=== PATIENT | male | born 1975 ===

== ENCOUNTER → 2017-05-27 | Outpatient (RCR) | payer MEDICARE | END | disposition home or self-care (01) | LOC: PTY 16:00 | DX: M54.5 Low back pain (principal); G51.0 Bell's palsy | CPT/HCPCS: 97110; 97161; G8990; G8991 ==

== ENCOUNTER 2017-06-03 16:00 | Outpatient (RCR) | payer MEDICARE | END 2017-06-27 | disposition home or self-care (01) | LOC: PTY 16:00 | DX: M54.5 Low back pain (principal); G51.0 Bell's palsy ==